=== PATIENT | male | born 1960 | race Caucasian/White ===

== ENCOUNTER 2022-07-19 23:25 | Inpatient (IN) | payer MEDICARE ==
[~2022-07-19] VITALS: Ht 188 cm; Wt 103.9 kg
[2022-07-19] MEDS ORDERED: BUSP30TA2 PO (23:36)
[2022-07-19] MEDS ORDERED: HYDR-501 PO (23:36)
[2022-07-19] MEDS ORDERED: MIRT-93 PO (23:36)
[2022-07-19] MEDS ORDERED: METO50TA16 PO (23:36)
[2022-07-19] MEDS ORDERED: QUET100T PO (23:36)
[2022-07-19] MEDS ORDERED: QUET200T PO (23:36)
--- NOTE | 2022-07-19 23:59 | NUR ---
PATIENT [facility] UN[facility] FROM [facility] ER TO BE MEDICALLY CLEAR TO BE EVAL BY PET TEAM TO BE ADMITTED TO MHU.
--- NOTE | 2022-07-20 00:14 | NUR ---
DR TAM AT BEDSIDE FOR MSE.
[2022-07-20] MEDS ORDERED: CHOLECALCIFEROL 1,000 UNIT TABLET ONE (00:34)
[2022-07-20] MEDS: CHOLECALCIFEROL 1,000 UNIT TABLET PO SCH ×2 (00:40→09:40)
--- NOTE | 2022-07-20 00:49 | NUR ---
Telephone call to PET Team/Raya, did not answer call, left message on voicemail. Awaiting return call.
--- NOTE | 2022-07-20 01:03 | NUR ---
Telephone call to PET Team Raya and informed that patient needs crisis eval and states understanding.
[2022-07-20] MEDS ORDERED: OXYCODONE/APAP 5-325 MG TABLET ONE (02:32)
[2022-07-20] MEDS ORDERED: OXYCODONE/APAP 5-325 MG TABLET PO ONE (02:45)
--- NOTE | 2022-07-20 03:06 | NUR ---
PET Team/Raya arrived to do eval.
--- NOTE | 2022-07-20 04:57 | NUR ---
Patient discharged to mental health unit. Report given to CRISTINA Webb and he was made aware of patient's arrival. Addendum: 07/20/22 at 0506 by MARNIE Report given to NORMA Webb.
[2022-07-20 05:48] VITALS: BP 148/89
[2022-07-20] MEDS ORDERED: MAG HYDROX/AL HYDROX/SIMETH 30 ML LIQUID UDC PO PRN (06:15)
[2022-07-20] MEDS ORDERED: ZOLPIDEM 5 MG TABLET PO PRN (06:15)
[2022-07-20] MEDS ORDERED: MAGNESIUM HYDROXIDE 30 ML LIQUID UDC PO PRN (06:15)
[2022-07-20] MEDS ORDERED: LORAZEPAM 1 MG TABLET PO PRN (06:15)
--- NOTE | 2022-07-20 07:11 | NUR ---
Received 61 y/o male pt in hallway brought into MHU via ER staff on wheelchair at 0500 hours. Pt was placed onto a 5150 hold d/t DTS and GD. Pt was AOx3, complaint, and displayed no cognitive disabilities. Came from [facility]. At his board and care pt stated to staff he wanted to cut his wrists and kill himself, and became uninterested in self care and ADLs. Pt is ambulatory, continent, and goal oriented. Pts belongings were collected and accounted for. Pt will be followed by psychiatrist Chaparrita and medical secretary Sang.
[2022-07-20 07:30] VITALS: BP 157/86
--- NOTE | 2022-07-20 09:16 | NUR ---
Firearms Report: Barrel Endshake Adjuster completed and submitted a [employer]J firearms report for 5150 grave disability and danger to self certifications. A copy of report has been placed in patient chart.
[2022-07-20] MEDS: FLUOXETINE HCL 20 MG CAPSULE PO SCH (09:40)
[2022-07-20] MEDS: METOPROLOL TARTRATE 50 MG TABLET PO SCH ×2 (09:41→20:25)
[2022-07-20] MEDS: busPIRone 10 MG TABLET PO SCH ×3 (09:41→16:58)
[2022-07-20] MEDS ORDERED: LEUP11.25 IM (12:28)
--- NOTE | 2022-07-20 13:50 | NUR ---
GPS: Nursing Notes: Regarding Medication Leuprolide: Staff spoke with patient's urologist - Dr. Vipul Escoto regarding patient's medication Leuprolide 7.5mg IM every month due today. Our pharmacy does not carry this medication per pharmacist. Dr. Vipul Escoto stated that when the patient gets discharge to call his office to reschedule an appointment, so he can get his medication, staff informed pharmacist to complete medication reconciliation. Also, patient was informed of urologist decision which he agreed to reschedule his appointment upon discharge. continue to monitor for safety, continue with treatment plan.
[2022-07-20 15:53] VITALS: BP 139/83
--- NOTE | 2022-07-20 16:00 | NUR ---
EVTO Initial Discharge Note: Pt currently resides at [facility] [place] located at [address] [place] [address] ([phone]). VETO called [facility] [place] and spoke with Cliff who confirmed pt is welcome back when he is ready for discharge. VETO spoke with pt's sister and discussed discharge plan. VETO will continue to work with pt, family, and MD to ensure a safe and proper discharge plan. Addendum: 07/20/22 at 1602 by JOSE Mcdermott Pt expressed ambivalence about returning to [facility].
--- NOTE | 2022-07-20 16:00 | NUR ---
VETO Family Contact: SW called and spoke with pt's sister, Ann Galindo ([phone]) and discussed treatment and discharge plan.
--- NOTE | 2022-07-20 16:02 | NUR ---
VETO Facility Contact: VETO called [facility] and spoke with Cliff who confirmed pt is welcome back when he is ready for discharge.
[2022-07-20] MEDS: ACETAMINOPHEN 325 MG TABLET PO PRN (18:14)
--- NOTE | 2022-07-20 18:18 | NUR ---
GPS: Nursing Notes: Destructive Behavior To Self: patient is awake and responding to his name, cooperative with nursing care, compliant with his medications, participating in therapeutic groups, denies SI/HI, stated "No, I do not want to harm myself.. I am feeling better today.." continue to monitor for safety, A/Ox4, depressed mood and anxious affect, unable to formulate a viable plan for self care at this time, continue with treatment plan.
[2022-07-20 19:59] VITALS: BP 158/84
[2022-07-20] MEDS: QUETIAPINE FUMARATE 100 MG TABLET PO SCH (20:25)
--- NOTE | 2022-07-21 04:12 | NUR ---
GPS NOTES: Patient is A&0x3, ambulating with steady gait. C/0 of anal pain, MD to see patient in the AM. Patient denies SI. contract safety with the com writer. He is anxious and frustrated regarding his placement. Encouraged to talk to SW in the AM. He is med compliant. Continuos monitoring observed.
[2022-07-21 07:30] VITALS: BP 123/47
[2022-07-21 08:03] LABS: HEMATOCRIT 39.7 % (36.7-47.1); MEAN CORPUSCULAR HEMOGLOBIN 29.7 uug (23.8-33.4); MEAN CORPUSCULAR VOLUME 87.1 fL (73.0-96.2); PLATELET COUNT (AUTO) 211 K/uL (152-348)
[2022-07-21 08:32] LABS: BILIRUBIN,TOTAL 0.7 mg/dL (0.2-1.0); MAGNESIUM 2.1 mg/dL (1.8-2.4); PHOSPHOROUS 4.8 mg/dL (2.5-4.9); POTASSIUM 4.4 mmol/L (3.5-5.1); TOTAL PROTEIN, SERUM 7.2 g/dL (6.4-8.2)
[2022-07-21] MEDS: FLUOXETINE HCL 20 MG CAPSULE PO SCH (09:02)
[2022-07-21] MEDS: METOPROLOL TARTRATE 50 MG TABLET PO SCH ×2 (09:02→20:34)
[2022-07-21] MEDS: CHOLECALCIFEROL 1,000 UNIT TABLET PO SCH (09:02)
[2022-07-21] MEDS: busPIRone 10 MG TABLET PO SCH ×3 (09:02→16:18)
--- NOTE | 2022-07-21 10:24 | NUR ---
Pt received lying in bed resting comfortably. Compliant with medications and care. No aggressive or combative behavior noted. Denies SI at this time.
[2022-07-21 10:59] LABS: THYROID STIMULATING HORMONE 2.447 mIU/mL (0.358-3.740)
--- NOTE | 2022-07-21 11:31 | NUR ---
Brief Substance Abuse Intervention: Patient was provided with a brief substance abuse intervention and referred to the following substance abuse programs: [facility] Substance Abuse Self-helpline ([phone]); [facility] ([phone]); [facility] ([phone]).
--- NOTE | 2022-07-21 11:31 | NUR ---
VETO Resource Provided: Pt expressed concerns about transportation to get to and from MD appointments and stated he is waiting for ACCESS transportation application in the mail. VETO printed and provided pt with ACCESS transportation application to complete.
--- NOTE | 2022-07-21 12:58 | NUR ---
VETO Resource Provided: SW assisted pt in calling ACCESS to obtain access ID: [id number]. Faxed ACCESS application to [facility] at [phone]. Pt was made aware to call ACCESS in one week to schedule in-person evaluation.
[2022-07-21 16:08] VITALS: BP 138/74
[2022-07-21 20:05] VITALS: BP 104/51
[2022-07-21] MEDS: QUETIAPINE FUMARATE 100 MG TABLET PO SCH (20:35)
--- NOTE | 2022-07-21 20:35 | NUR ---
Held Metoprolol 50mg po @ 2100 hours d/t patients DBP and specifically heart rate is below normal rate. BP 104/51, pulse 56.
[2022-07-22 07:41] VITALS: BP 117/62
[2022-07-22] MEDS: METOPROLOL TARTRATE 25 MG TABLET PO SCH ×2 (08:51→20:29)
[2022-07-22] MEDS: busPIRone 10 MG TABLET PO SCH ×3 (08:51→17:16)
[2022-07-22] MEDS: FLUOXETINE HCL 20 MG CAPSULE PO SCH (08:51)
[2022-07-22] MEDS: CHOLECALCIFEROL 1,000 UNIT TABLET PO SCH (08:52)
--- NOTE | 2022-07-22 14:37 | NUR ---
Gps/Kersey Department Supervisor- Verbalized still feelings of being depressed, stayed in the activity room, interacting fairly well. Amol Segal MARKET DEVELOPMENT MANAGER was in , saw patient, was able to discussed with patient medication he takes once a month where he was .
[2022-07-22] MEDS: ACETAMINOPHEN 325 MG TABLET PO PRN (17:14)
[2022-07-22 17:18] VITALS: BP 132/79
[2022-07-22 19:59] VITALS: BP 133/77
[2022-07-22] MEDS: ATORVASTATIN 10 MG TABLET PO SCH (20:29)
[2022-07-22] MEDS: QUETIAPINE FUMARATE 100 MG TABLET PO SCH (20:29)
[2022-07-23 07:47] VITALS: BP 126/79
[2022-07-23] MEDS: FLUOXETINE HCL 20 MG CAPSULE PO SCH (09:08)
[2022-07-23] MEDS: busPIRone 10 MG TABLET PO SCH ×3 (09:08→16:28)
[2022-07-23] MEDS: CHOLECALCIFEROL 1,000 UNIT TABLET PO SCH (09:08)
[2022-07-23] MEDS: METOPROLOL TARTRATE 25 MG TABLET PO SCH ×2 (09:10→20:11)
[2022-07-23] MEDS: CYANOCOBALAMIN 1000 MCG/ML VIAL IM SCH (09:13)
[2022-07-23] MEDS: ACETAMINOPHEN 325 MG TABLET PO PRN (09:15)
--- NOTE | 2022-07-23 14:32 | NUR ---
Gps/Choker Setter- Able to verbalized feelings and needs, attended group activities in the Patio, making his simple needs known to the staff . Adequate relief from lower back pain per patient.
[2022-07-23 17:04] VITALS: BP 129/82
[2022-07-23 20:02] VITALS: BP 118/78
[2022-07-23] MEDS: ATORVASTATIN 10 MG TABLET PO SCH (20:10)
[2022-07-23] MEDS: QUETIAPINE FUMARATE 100 MG TABLET PO SCH (20:11)
[2022-07-24 07:37] VITALS: BP 116/51
[2022-07-24] MEDS: CYANOCOBALAMIN 1000 MCG/ML VIAL IM SCH (08:26)
[2022-07-24] MEDS: FLUOXETINE HCL 20 MG CAPSULE PO SCH (08:28)
[2022-07-24] MEDS: CHOLECALCIFEROL 1,000 UNIT TABLET PO SCH (08:28)
[2022-07-24] MEDS: busPIRone 10 MG TABLET PO SCH ×3 (08:29→16:25)
[2022-07-24] MEDS: METOPROLOL TARTRATE 25 MG TABLET PO SCH ×2 (08:29→21:05)
[2022-07-24] MEDS: ACETAMINOPHEN 325 MG TABLET PO PRN (11:01)
--- NOTE | 2022-07-24 15:40 | NUR ---
Gps/Internal Medicine Veterinary Technician- More interactive, smiling, adequate relief from buttocks pain. Observed participating in his group activities .Encouraged continued verbalizations of his feelings .
[2022-07-24 16:04] VITALS: BP 127/72
[2022-07-24 19:47] VITALS: BP 154/74
--- NOTE | 2022-07-24 20:30 | NUR ---
Received patient in his room in bed. HE is noted A/PO x 3 able to verbalized his feelings. patient is calm and pleasant upon approached, He is isolative and withdrawn but he denied SI/HI/VH/AH he is able to verbally CFS. patient is reassured for his safety, safety and fall precautions are in place. His V/S are stable. will continue to monitor.
[2022-07-24] MEDS: ATORVASTATIN 10 MG TABLET PO SCH (21:04)
[2022-07-24] MEDS: QUETIAPINE FUMARATE 100 MG TABLET PO SCH (21:04)
[2022-07-25 07:58] VITALS: BP 124/73
[2022-07-25] MEDS: CHOLECALCIFEROL 1,000 UNIT TABLET PO SCH (08:26)
[2022-07-25] MEDS: FLUOXETINE HCL 20 MG CAPSULE PO SCH (08:27)
[2022-07-25] MEDS: busPIRone 10 MG TABLET PO SCH ×3 (08:28→16:31)
[2022-07-25] MEDS: METOPROLOL TARTRATE 25 MG TABLET PO SCH ×2 (08:28→21:00)
[2022-07-25] MEDS: CYANOCOBALAMIN 1000 MCG/ML VIAL IM SCH (08:29)
[2022-07-25] MEDS: GLUCERNA SHAKE 237 ML CAN PO SCH (08:31)
[2022-07-25] MEDS: ACETAMINOPHEN 325 MG TABLET PO PRN ×2 (13:35→19:30)
--- NOTE | 2022-07-25 15:15 | NUR ---
Gps/Learning Design Specialist- Preferred to stay in the activity room, participating in his activity, and watching TV. Verbalized adequate relief from rectal, buttocks pain . Denies any plan to hurt self. Quiet, interacts when engaged.
[2022-07-25 15:32] VITALS: BP 109/67
[2022-07-25 20:05] VITALS: BP 112/66
[2022-07-25] MEDS: QUETIAPINE FUMARATE 100 MG TABLET PO SCH (21:11)
[2022-07-25] MEDS: ATORVASTATIN 10 MG TABLET PO SCH (21:11)
[2022-07-26 08:19] VITALS: BP 112/68
[2022-07-26] MEDS: CYANOCOBALAMIN 1000 MCG/ML VIAL IM SCH (08:49)
[2022-07-26] MEDS: busPIRone 10 MG TABLET PO SCH ×3 (08:50→17:46)
[2022-07-26] MEDS: METOPROLOL TARTRATE 25 MG TABLET PO SCH ×2 (08:50→20:28)
[2022-07-26] MEDS: CHOLECALCIFEROL 1,000 UNIT TABLET PO SCH (08:50)
[2022-07-26] MEDS: GLUCERNA SHAKE 237 ML CAN PO SCH (08:50)
[2022-07-26] MEDS: FLUOXETINE HCL 20 MG CAPSULE PO SCH (08:50)
--- NOTE | 2022-07-26 10:56 | NUR ---
SNF Referral: [employer] faxed patient's referral packet including: History and Physical, Consultation, Progress Notes, Medication List and Labs to the following facilities for review and possible long-term placement: [place] [facility] [address] ([phone]) F: [phone]).
--- NOTE | 2022-07-26 11:42 | NUR ---
SW Discharge Update: per bert naranjo ([phone]), pt is accepted to [facility] [id number] ([phone]) upon discharge.
[2022-07-26 16:02] VITALS: BP 112/67
--- NOTE | 2022-07-26 18:08 | NUR ---
GPS: Nursing Notes: Destructive Behavior To Self: Patient is awake and responding to his name, cooperative with nursing care, verbally nelli for safety, denies SI, participating in therapeutic groups, interactive with peers, following staff directions, unable to formulate a viable plan for self care, continue to monitor for safety, continue with treatment plan.
[2022-07-26 19:36] VITALS: BP 115/64
[2022-07-26] MEDS: ACETAMINOPHEN 325 MG TABLET PO PRN (20:27)
[2022-07-26] MEDS: ATORVASTATIN 10 MG TABLET PO SCH (20:29)
[2022-07-26] MEDS: QUETIAPINE FUMARATE 100 MG TABLET PO SCH (20:29)
--- NOTE | 2022-07-27 04:41 | NUR ---
GPS NOTES: Patient A&0x3, compliant with medications. Denies SI. Able to make needs known. C/o pain, tylenol given. Effective. Patient sleep well during night. Safety strategies in place.
[2022-07-27 07:33] VITALS: BP 114/72
[2022-07-27] MEDS: FLUOXETINE HCL 20 MG CAPSULE PO SCH (08:33)
[2022-07-27] MEDS: busPIRone 10 MG TABLET PO SCH ×3 (08:33→17:05)
[2022-07-27] MEDS: CHOLECALCIFEROL 1,000 UNIT TABLET PO SCH (08:33)
[2022-07-27] MEDS: CYANOCOBALAMIN 1000 MCG/ML VIAL IM SCH (08:34)
[2022-07-27] MEDS: METOPROLOL TARTRATE 25 MG TABLET PO SCH ×2 (08:34→20:15)
[2022-07-27] MEDS: GLUCERNA SHAKE 237 ML CAN PO SCH (08:35)
--- NOTE | 2022-07-27 10:20 | NUR ---
VETO Family Contact: VETO spoke with pt's sister, Ann Galindo ([phone]) and provided pt's discharge details to [facility] on 07/28/22 at 11AM for his continuation of care with psychiatrist, Dr. Cheatham. Rosario is aware and agreeable. Rosario's questions were answered.
--- NOTE | 2022-07-27 16:23 | NUR ---
GPS: Nursing Notes: Destructive Behavior To Self: Patient is awake and responding to his name, compliant with his medications, cooperative with nursing care, denies SI, participating in therapeutic groups, depressed mood and brighter affect, believes that he is getting better, interactive with staff, believes that he getting better, unable to formulate a viable plan for self care, continue to monitor for safety, continue with treatment plan.
[2022-07-27 16:30] VITALS: BP 152/68
[2022-07-27 19:44] VITALS: BP 134/71
[2022-07-27] MEDS: ACETAMINOPHEN 325 MG TABLET PO PRN (20:15)
[2022-07-27] MEDS: ATORVASTATIN 10 MG TABLET PO SCH (20:15)
[2022-07-27] MEDS: QUETIAPINE FUMARATE 100 MG TABLET PO SCH (20:15)
[2022-07-28 07:39] VITALS: BP 129/69
[2022-07-28] MEDS: busPIRone 10 MG TABLET PO SCH (08:13)
[2022-07-28 08:14] VITALS: BP 129/69
[2022-07-28] MEDS: GLUCERNA SHAKE 237 ML CAN PO SCH (08:14)
[2022-07-28] MEDS: FLUOXETINE HCL 20 MG CAPSULE PO SCH (08:14)
[2022-07-28] MEDS: CHOLECALCIFEROL 1,000 UNIT TABLET PO SCH (08:14)
[2022-07-28] MEDS: METOPROLOL TARTRATE 25 MG TABLET PO SCH (08:14)
[2022-07-28] MEDS: ACETAMINOPHEN 325 MG TABLET PO PRN (08:14)
--- NOTE | 2022-07-28 08:59 | NUR ---
VETO Discharge Note: Pt will be discharged to [facility] located at [address] [place] [phone] ([phone]) via Ambulance transportation at 11AM. VETO spoke with admin coordinator, Ingrid ([phone]) at the facility who states they are ready to accept the patient today. Pt is aware and agreeable with discharge plan. Pts sister, Rosario ([phone]) is aware and agreeable with the discharge plan. Pt has a follow-up Oncologist appt with Dr. Escoto ([phone]) located at [address] [place] [address], [address] [place] [address] on Wednesday, August 03, 2022, at 11AM confirmed by Aubree in the front office. Pt is alert and oriented x4 and is unable to plan for self-care at this time. However, pt is willing to accept care at SNF. Pt denies any suicidal or homicidal ideation. Pt will follow-up at the facility with Psychiatrist, Dr. Cheatham ([phone]) and Sports Team Marketing Intern, Dr. [place]. Pt presents with calm mood and congruent affect. PHARMACY: [place] ([phone]) [address] [facility] [address] [facility] [address].
--- NOTE | 2022-07-28 13:05 | NUR ---
Pt is being discharged to [facility] via ambulance. Pt is aware of the discharge plan. Pt verbalizes understanding, denies S.I. Pt was able to sign paperwork. Report given to CRISTINA Fernández
== END 2022-07-28 13:08 | DRG 885 ==
LOC: ER 23:32 → GPS 07-20 03:38
PROVIDERS: ADMIT Psychiatry & Neurology Psychiatry; ATTEND Internal Medicine
DX: F33.3 Major depressive disorder, recurrent, severe with psychotic symptoms (principal); R45.851 Suicidal ideations; F41.9 Anxiety disorder, unspecified; I10 Essential (primary) hypertension; E78.5 Hyperlipidemia, unspecified; E66.9 Obesity, unspecified; F42.9 Obsessive-compulsive disorder, unspecified; Z68.29 Body mass index [BMI] 29.0-29.9, adult; Z20.822 Contact with and (suspected) exposure to COVID-19; E53.8 Deficiency of other specified B group vitamins; Z85.46 Personal history of malignant neoplasm of prostate; M89.8X8 Other specified disorders of bone, other site
CPT/HCPCS: 36415; 83735; 84100; 84153; 84443; 85025; J3420